=== PATIENT | female | born 1965 | race Caucasian/White ===

== ENCOUNTER → 2018-10-10 08:05 | Outpatient (CLI) | payer OTHER, SELFPAY ==
--- NOTE | 2018-10-10 08:07 | DI.MG.S_ITS ---
BILATERAL DIGITAL SCREENING MAMMOGRAM 3D/2D WITH CAD: 10/10/2018 CLINICAL: Routine screening. Family history of breast cancer. Comparison is made to exam dated: 10/18/2012 [facility]. The tissue of both breasts is heterogeneously dense. This may lower the sensitivity of mammography. Current study was also evaluated with a Computer Aided Detection (CAD) system. There are benign calcifications in both breasts. No significant masses, calcifications, or other findings are seen in either breast. There has been no significant interval change. IMPRESSION: There is no mammographic evidence of malignancy. A 1 year screening mammogram is recommended. This exam was interpreted at Station ID: [id number]. NOTE: For mammograms, a report in lay terms will be sent to the patient. Approximately 15% of breast malignancies will not be visualized mammographically. In the management of a palpable breast mass, a negative mammogram must not discourage biopsy of a clinically suspicious lesion. Electronically Signed By: Amor park/curtis:10/10/2018 11:03:32 letter sent: Normal Exam ACR BI-RADS Category 2: Benign Finding(s) 3342F
== END ==
PROVIDERS: PCP Family Medicine
DX: Z12.31 Encounter for screening mammogram for malignant neoplasm of breast (principal); Z80.3 Family history of malignant neoplasm of breast
CPT/HCPCS: 77063; 77067

== ENCOUNTER → 2020-08-26 13:27 | Outpatient (CLI) | payer OTHER, SELFPAY ==
--- NOTE | 2020-08-26 | DI.RAD.S_ITS ---
PROCEDURE: XR FOOT RT MIN 3V INDICATIONS: RIGHT FOOT PAIN TECHNIQUE: 3 views of the foot were acquired. COMPARISON: None. FINDINGS: Bones: No fractures or dislocations. No suspicious bony lesions. Soft tissues: No tibiotalar joint effusion. Achilles tendon appears normal. IMPRESSION: Source of pain at the base of the 2nd digit is not identified. Dictated by: Bhavesh Bustamante M.D. on 08/26/2020 at 15:39 Approved by: Bhavesh Bustamante M.D. on 08/26/2020 at 15:40
== END ==
PROVIDERS: PCP Family Medicine; Referring Provider Family Medicine; Visit Provider Family Medicine
DX: M79.671 Pain in right foot (principal)
CPT/HCPCS: 73630

== ENCOUNTER → 2021-03-17 14:26 | Outpatient (CLI) | payer OTHER, SELFPAY ==
--- NOTE | 2021-03-17 | DI.RAD.S_ITS ---
PROCEDURE: XR FINGER RT MIN 2V INDICATIONS: RIGHT MIDDLE FINGER PAIN, SWELLING, S/P INJURY TECHNIQUE: AP hand, 2 views of the 3rd finger(s) acquired. COMPARISON: CR, HAND 3V RIGHT, 08/15/2009, 17:38. FINDINGS: Bones: No fractures or dislocations. No suspicious bony lesions. Soft tissues: No suspicious soft tissue calcifications. IMPRESSION: No definite radiographic abnormality. If pain persists with conservative management, consider cross sectional imaging such as CT or MRI for further assessment. Dictated by: Al Sparrow [facility] Interpreted: Ishmael Bianchi MD on 03/17/2021 at 15:21 Transcribed by: HALLEY on 03/17/2021 at 15:22 Approved by: Ishmael Bianchi M.D. on 03/17/2021 at 17:28
[2021-03-17 15:10] LABS: Add Manual Diff / Slide Review NO; Basophils Absolute Auto 0 /uL (0-100); Basophils Percent Auto 0.6 % (0-2); Eosinophils Absolute Auto 100 /uL (0-450); Eosinophils Percent Auto 1.9 % (2-4); Hematocrit 42.7 % (36-46); Hemoglobin 14.5 g/dL (12.0-16.0); Lymphocytes Absolute Auto 1300 /uL (1100-4500); Lymphocytes Percent Auto 23.5 % (25-40); Mean Corpuscular HGB Conc 33.9 % (30-36); Mean Corpuscular Hemoglobin 30.1 PG (26-34); Mean Corpuscular Volume 88.8 fL (80-100); Monocytes Absolute Auto 400 /uL (0-900); Monocytes Percent Auto 7.2 % (3-14); Neutrophils Absolute Auto 3700 /uL (1500-7000); Neutrophils Percent Auto 66.8 % (50-75); Platelet Count 291 X10^3/uL (150-400); Red Blood Cell Count 4.81 X10^6/uL (4.0-5.2); White Blood Cell Count 5.5 X10^3/uL (4.5-11.0)
[2021-03-17 16:21] LABS: Vitamin D 25 Hydroxy (D3) 28.5 ng/mL (30.0-100.0)
[2021-03-18 11:16] LABS: HCV AB <0.1 s/co ratio (0.0-0.9)
== END ==
PROVIDERS: PCP Family Medicine; Referring Provider Family Medicine; Visit Provider Family Medicine
DX: E55.9 Vitamin D deficiency, unspecified (principal); M79.644 Pain in right finger(s); D70.9 Neutropenia, unspecified
CPT/HCPCS: 36415; 73140; 82306; 85025; 86803

== ENCOUNTER 2021-07-13 02:19 | Emergency (ER) | payer OTHER, SELFPAY ==
[2021-07-13 02:26] VITALS: BMI 24.7
--- NOTE | 2021-07-13 02:38 | DI.CT.S_ITS ---
PROCEDURE: CT KIDNEY URETER BLADDER (KUB) INDICATIONS: left flank pain, history of stones TECHNIQUE: Axial sections were acquired from the lung bases to the pubic symphysis. Coronal and sagittal reformats were performed. For radiation dose reduction, the following was used: automated exposure control, adjustment of mA and/or kV according to patient size. COMPARISON: None. FINDINGS: Image quality: Excellent. Lung bases: Unremarkable. Heart: No significant findings. URINARY: Right Kidney: Nonobstructing right-sided nephrolith measuring approximately 3 mm in size. No hydronephrosis. No perinephric stranding. Right Ureter: No hydroureter. No ureteral stone. Left Kidney: Multiple renal stones are present measuring up to 5 mm in size. There is mild hydroureteronephrosis. Left Ureter: There is a 2 mm distal left ureteral stone with associated left hydroureter. Bladder: Normal wall thickness. No stones. ABDOMEN: Liver: Unremarkable. Gallbladder: Gallbladder is unremarkable Biliary ducts: Unremarkable. Pancreas: Unremarkable. Spleen: Unremarkable. Adrenal Glands: Unremarkable. Stomach and Bowel: Stomach, small bowel loops, and colon are unremarkable. Normal appendix Peritoneum: No abnormal intraperitoneal fluid. No free air. Ventral Wall: There is a fat-containing umbilical hernia without acute inflammation. Abdominal Nodes: No enlarged retroperitoneal or mesenteric lymph nodes. Vessels: Aorta and inferior vena cava are normal in size. PELVIS: Pelvic Organs: Unremarkable. Pelvic Nodes: Unremarkable. Miscellaneous: No inguinal hernias are seen. Bones: There are postsurgical changes of the left femoral neck. No acute compression fractures. IMPRESSION: There is a 2 mm obstructing distal left ureteral stone with associated mild left hydroureteronephrosis. Multiple dish dull bilateral renal stones are present measuring up to 3 mm on the right and 5 mm on the left. No significant discrepancy with the slot shift manager radiology preliminary report. Dictated by: Amor Jarquin M.D. on 07/13/2021 at 7:06 Approved by: Amor Jarquin M.D. on 07/13/2021 at 7:13
--- NOTE | 2021-07-13 02:40 | ED_ITS ---
HPI - Abdominal Pain General Chief Complaint: Abdominal Pain Stated Complaint: left side/kidney pain x2 hours Time Seen by Provider: 07/13/21 02:30 Source: patient Mode of arrival: Ambulatory History of Present Illness HPI narrative: Patient is a 56-year-old female history of kidney stones presenting today with sudden onset left flank pain. She is to was doing well earlier in the day pain started roughly around 8:00 p.m. progressively got worse. She says he has known stones in her kidney. She denies any fever or chills. She feels nauseous with the intense pain. Pain is wrapping around from her flank to her groin just like previous kidney stones. Has never required lithotripsy. It has been a number of years since her last 1. She denied any other medical problems. Related Data Previous Rx's Medication Instructions Recorded hydrocodone 5 mg-acetaminophen 325 1 tab PO Q6H PRN #10 tab 07/13/21 mg tablet ondansetron 4 mg disintegrating 4 mg PO Q8H PRN #10 tab 07/13/21 tablet Allergies Allergy/AdvReac Type Severity Reaction Status Date / Time No Known Drug Allergies Allergy Verified 09/26/18 11:10 Review of Systems Review of Systems Narrative: GENERAL: Denies chills, fatigue, malaise, fever, sweats, travel HEENT: Denies sinus pain, ear pain, sore throat, difficulty swallowing, neck pain RESPIRATORY: Denies dyspnea, cough, wheezing, hemoptysis, sputum. CARDIOVASCULAR: Denies chest pain, palpitations, orthopnea, edema GASTROINTESTINAL: See HPI : See HPI MUSCULOSKELETAL: Denies weakness, joint pain, or bony pain SKIN: No rash, no erythema, no pruritus NEUROLOGIC: Denies weakness, dizziness, headache, numbness, change in speech, confusion PSYCHIATRIC: No concerning psychosocial issues. 12 point review of systems is negative except for those stated above and HPI Patient History Medical History (Updated 07/13/21 @ 03:45 by Tyesha Mckeon DO) Kidney stones (~2015) Ulcerative colitis Vision disorder Surgical History (Updated 11/10/18 @ 18:58 by Maranda Jarrett) Anesthesia Leg fracture, left (~1999) Social History Smoking Status: Never smoker Smoking Status: Never smoker Substance Use Type: does not use Exam Initial Vital Signs Initial Vital Signs: Vital Signs Temperature 99.1 F 07/13/21 03:00 Pulse Rate 64 01/19/22 03:00 Respiratory Rate 20 07/13/21 03:00 Blood Pressure 128/78 07/13/21 03:00 Pulse Oximetry 96 07/13/21 03:00 GENERAL: The patient overall appears in quite a bit of pain and nauseous HEENT: Head atraumatic,EOMI, pupils reactive, face symmetric, moist mucous membranes CARDIOVASCULAR: Regular rate and rhythm without murmurs, rubs or gallops. RESPIRATORY: Breath sounds equal bilaterally, no wheezes rales or rhonchi. ABDOMEN: Soft, nontender. Normoactive bowel sounds all 4 quadrants. No guarding or rebound. : Left CVA tenderness EXTREMITIES: Normal range of motion, no clubbing or edema. Neurovascularly intact NEUROLOGICAL: Alert and oriented x4.Normal gait and speech. SKIN: Warm, dry, no laceration, no petechiae, no rashes or lesions. Course Orders Ordered: ED Orders 07/13/21 02:38 CT kidney ureter bladder (KUB) Stat 07/13/21 02:40 CBC Auto Diff [Complete Blood Count AUTO DIFF] Stat CMP [Comprehensive Metabolic Panel] Stat Lipase Stat 07/13/21 03:59 UA dip and micro [Urinalysis and Microscopic] Stat Discontinued Medications Hydrocodone Bitart/Acetaminophen (Hydrocodone/Acet 5/325 Prepack) 1 bottle MISC SEEINSTR ONE Stop: 07/13/21 03:58 Last Admin: 07/13/21 04:10 Dose: 1 bottle Documented by: JAS Ketorolac Tromethamine (Ketorolac 30 Mg/Ml Vial) 30 mg IV NOW ONE Stop: 07/13/21 02:37 Last Admin: 07/13/21 02:41 Dose: 30 mg Documented by: GRANT Morphine Sulfate (Morphine 2 Mg/Ml Inj) 2 mg IV NOW ONE Stop: 07/13/21 03:35 Last Admin: 07/13/21 03:39 Dose: 2 mg Documented by: JAS Ondansetron HCl (Ondansetron 4 Mg Odt Prepack) 1 [facility] Stop: 07/13/21 03:58 Last Admin: 07/13/21 04:10 Dose: 1 bottle Documented by: JAS Vital Signs Vital signs: Vital Signs - 8 hr 07/13/21 03:00 07/13/21 05:01 Temperature 99.1 F Pulse Rate 64 82 Respiratory Rate 20 16 Blood Pressure 128/78 128/78 Pulse Oximetry 96 98 MDM - Abdominal Pain Lab Data Result diagrams: 07/13/21 02:40 07/13/21 02:40 Labs: Lab Results 07/13/21 07/13/21 07/13/21 Range/Units 02:40 02:40 03:59 WBC 5.9 (4.5-11.0) X10^3/uL RBC 4.71 (4.0-5.2) X10^6/uL Hgb 14.2 (12.0-16.0) g/dL Hct 40.6 (36-46) % MCV 86.1 (80-100) fL MCH 30.2 (26-34) PG MCHC 35.1 (30-36) % RDW 13.1 (11.6-14.8) % Plt Count 296 (150-400) X10^3/uL Neut % (Auto) 45.4 L (50-75) % Lymph % (Auto) 40.5 H (25-40) % [place] % (Auto) 9.0 (3-14) % Eos % (Auto) 4.4 H (2-4) % Baso % (Auto) 0.7 (0-2) % Neut # (Auto) 2700 (2250-4918) /uL Lymph # (Auto) 2400 (3528-7069) /uL [place] # (Auto) 500 (0-900) /uL Eos # (Auto) 300 (0-450) /uL Baso # (Auto) 0 (0-100) /uL Sodium 139 (137-145) mmol/L Potassium 4.0 (3.4-5.1) mmol/L Chloride 105 (98-107) mmol/L Carbon Dioxide 25 (22-32) mmol/L BUN 14 (7-17) mg/dL Creatinine 0.80 (0.52-1.04) mg/dL Estimated GFR > 60.0 (>60) mL/min BUN/Creatinine Ratio 17.5 (6-22) Glucose 123 H (70-100) mg/dL Calcium 9.5 (8.4-10.2) mg/dL Total Bilirubin 0.4 (0.2-1.3) mg/dL AST 33 (14-36) IU/L ALT 19 (<35) IU/L Alkaline Phosphatase 83 (38-126) U/L Total Protein 7.3 (6.3-8.2) g/dL Albumin 4.4 (3.5-5.0) g/dL Globulin 2.9 (1.7-4.1) g/dL Albumin/Globulin Ratio 1.5 (1.0-2.8) Lipase 108 (23-300) U/L Urine Color Yellow Urine Appearance Clear Urine pH 6.5 (4.5-8.0) Ur Specific [place] 1.020 (1.000-1.035) Urine Protein 1+ H (Negative) Urine Glucose (UA) Trace H (Negative) g/dL Urine Ketones Trace H (NEGATIVE) Urine Occult Blood 3+ H (Negative) Urine Nitrate Negative (Negative) Urine Bilirubin Negative (NEGATIVE) Urine Urobilinogen 1.0 (0.2) E.U./dL Ur Leukocyte Esterase Negative (NEGATIVE) Urine RBC 10-30/hpf H (0-5/HPF) Urine WBC None seen (0-5/HPF) Ur Squamous Epith Cells 0-1 /hpf (0-5/HPF) Urine Bacteria Occasional (0-1) (None) Urine Mucus 1+ H (Negative) Ur Culture Indicated? Cult not indicated Point of care testing: Urine Dip Bedside Urine Glucose Negative Bedside Urine Bilirubin - Negative Bedside Urine Ketone - Negative Urine Specific [place] 1.025 Bedside Urine Occult Blood +++ Bedside Urine pH 6 Bedside Urine Protein + 30 Bedside Urine Urobilinogen - Negative Bedside Urine Nitrite - Negative Bedside Urine Leukocytes - Negative Esterase Imaging Data CT scan - abdomen/pelvis: Radiologist's Impression: Preliminary report: Mild left-sided hydro ureteral nephrosis with 2 mm distal left ureteral calculus. Additional nonobstructing left and right renal calculi are present MDM Narrative Medical decision making narrative: Patient initially feeling some relief after Toradol. CT does confirm 2 mm stone at the he denied with intrarenal stones bilaterally. No sign of infection no failure at this time. She is requiring a dose of morphine to help get her pain more under control. She is given pain medications for pain control home drug shins and when to return to ED. She will likely need Urology consult seeing as though she has more stones. Discharge Plan Departure Patient Disposition: Home Clinical Impression: Kidney stone on left side Instructions: DI for Kidney Stones Activity Restrictions/Additional Instructions: * You've been diagnosed with kidney stone * What to do: Increase fluid intake, Strain urine, try to catch stone * Please follow-up with your primary care provider in the next 2-3 days, you may require urology consultation please discuss this with -If you should have fever, or pain is uncontrolled with medication at home or any other concerning symptoms return to ER for further evaluation MEDICATIONS-->[facility] to [facility] [place] Take Motrin 800 mg every 8 hours as needed for pain Take [place] every 6 hours if needed for severe pain Take Zofran every 4-6 hours if needed for nausea CONTROLLED SUBSTANCE DISCHARGE (Narcotoic/benzodiazepine) 1. You have been prescribed narcotic medications, it does have acetaminophen/Tylenol/paracetamol in it so do not take extra Tylenol or Tylenol containing products 2. Please understand that we cannot provide further refills of narcotics, benzodiazepines or controlled substances through the ED and her pain management will need to be through your provider. 3. While on these medications you cannot drive or operate heavy machinery. 4. You cannot sign legal documents or perform any duties such as this. 5. As long as you're taking opiate pain medications he should also be taking a stool softener such as Colace, Dulcolax, MiraLAX or prune juice, to help avoid constipation. Prescriptions: New hydrocodone-acetaminophen 5-325 mg tablet 1 tab PO Q6H PRN (Reason: pain) Qty: 10 0RF ondansetron 4 mg tablet,disintegrating 4 mg PO Q8H PRN (Reason: nausea and vomiting) Qty: 10 0RF Referrals: Halle Morillo MD [Primary Care Provider] -
[2021-07-13] MEDS: KETOROLAC 30 MG/ML VIAL IV (02:41)
[2021-07-13] MEDS: ONDANSETRON 4 MG/2 ML INJ (02:41)
[2021-07-13 02:53] LABS: Add Manual Diff / Slide Review NO; Basophils Absolute Auto 0 /uL (0-100); Basophils Percent Auto 0.7 % (0-2); Eosinophils Absolute Auto 300 /uL (0-450); Eosinophils Percent Auto 4.4 % (2-4); Hematocrit 40.6 % (36-46); Hemoglobin 14.2 g/dL (12.0-16.0); Lymphocytes Absolute Auto 2400 /uL (1100-4500); Lymphocytes Percent Auto 40.5 % (25-40); Mean Corpuscular HGB Conc 35.1 % (30-36); Mean Corpuscular Hemoglobin 30.2 PG (26-34); Mean Corpuscular Volume 86.1 fL (80-100); Monocytes Absolute Auto 500 /uL (0-900); Neutrophils Absolute Auto 2700 /uL (1500-7000); Neutrophils Percent Auto 45.4 % (50-75); Platelet Count 296 X10^3/uL (150-400); Red Blood Cell Count 4.71 X10^6/uL (4.0-5.2); Red Cell Distribution Width 13.1 % (11.6-14.8); White Blood Cell Count 5.9 X10^3/uL (4.5-11.0)
[2021-07-13 02:58] LABS: Alanine Aminotransferase 19 IU/L (<35); Albumin 4.4 g/dL (3.5-5.0); Albumin Globulin Ratio 1.5 (1.0-2.8); Alkaline Phosphatase 83 U/L (38-126); Aspartate Aminotransferase 33 IU/L (14-36); BUN Creatinine Ratio 17.5 (6-22); Bilirubin Total 0.4 mg/dL (0.2-1.3); Blood Urea Nitrogen 14 mg/dL (7-17); Calcium 9.5 mg/dL (8.4-10.2); Carbon Dioxide 25 mmol/L (22-32); Chloride 105 mmol/L (98-107); Estimated Glomerular Filt Rate > 60.0 mL/min (>60); Globulin 2.9 g/dL (1.7-4.1); Glucose 123 mg/dL (70-100); HEMOLYSIS 19 (0-50); Lipase 108 U/L (23-300); Sodium 139 mmol/L (137-145); Total Protein 7.3 g/dL (6.3-8.2)
[2021-07-13 03:00] VITALS: BP 128/78; PULSE 64; RESP 20; TEMP 37.3; O2SAT 96
[2021-07-13] MEDS: MORPHINE 2 MG/ML INJ IV (03:39)
[2021-07-13 04:01] LABS: Appearance Urine UA CLEAR; Bilirubin Urine UA NEGATIVE (NEGATIVE); Color Urine UA YELLOW; Glucose Urine UA TRACE g/dL (Negative); Ketones Urine UA TRACE (NEGATIVE); Leukocyte Esterase Urine UA NEGATIVE (NEGATIVE); Nitrite Urine UA NEGATIVE (Negative); Occult Blood Urine UA 3+ (Negative); Protein Urine UA 1+ (Negative)
[2021-07-13 04:02] LABS: pH Urine UA 6.5 (4.5-8.0)
[2021-07-13] MEDS: HYDROCODONE/ACET 5/325 PREPACK 1 BOTTLE MISC (04:10)
[2021-07-13] MEDS: ONDANSETRON 4 MG ODT PREPACK 1 BOTTLE MISC (04:10)
[2021-07-13 04:13] LABS: Bacteria Urine Occasional (0-1); Culture Indicated Urine Cult Not Indicated; Mucus Urine 1+ (Negative); RBC Urine 10-30/HPF (0-5/HPF); Squamous Epithelial Cell Urine 0-1 /HPF (0-5/HPF); WBC Urine None Seen (0-5/HPF)
[2021-07-13 05:01] VITALS: BP 128/78; PULSE 82; RESP 16; O2SAT 98
== END 2021-07-13 05:02 | disposition home or self-care (01) ==
PROVIDERS: Emergency Provider Emergency Medicine; PCP Family Medicine
DX: N20.0 Calculus of kidney (principal); Z87.442 Personal history of urinary calculi
CPT/HCPCS: 36415; 74176; 80053; 81001; 81003; 83690; 85025; 96374; 96375; 99284; J1885; J2270; J2405

== ENCOUNTER 2024-06-01 03:40 | Emergency (ER) | payer OTHER, SELFPAY ==
--- NOTE | 2024-06-01 03:42 | ED.ABDPAIN ---
HPI - Abdominal Pain General Chief Complaint: Urogenital-Female Stated Complaint: KIDNEY STONE T-3 Time Seen by Provider: 06/01/24 03:41 History of Present Illness HPI narrative: 59-year-old female history of kidney stones presents to the emergency department from home for evaluation of sudden onset left-sided flank pain states that it started a proximally 3 days ago, states that she did have some hematuria, states that it felt exactly similar to her history of kidney stones in the past, she states that it did take a proximally 5 days for the past previously, states that she did follow up with urologist after, has not followed up with them since. She does endorse nausea but no vomiting. Nothing making it better or worse. States that the pain has not gotten any better therefore decided come to ED for further evaluation treatment. Not on any blood thinners no trauma no falls patient states that she did take 600 mg of Motrin 3 hours prior to arrival without any relief. Related Data Previous Rx's Medication Instructions Recorded hydrocodone 5 mg-acetaminophen 325 1 tab PO Q6H PRN pain #10 tabs 07/13/21 mg tablet ondansetron 4 mg disintegrating 4 mg PO Q8H PRN nausea and 07/13/21 tablet vomiting #10 tabs cephalexin 500 mg capsule 500 mg PO TID 7 days #21 caps 06/01/24 ondansetron 4 mg disintegrating 4 mg PO TID PRN nausea and 06/01/24 tablet vomiting 1 week #21 tabs oxycodone-acetaminophen 5 mg-325 1 tab PO Q8H PRN pain 5 days #15 06/01/24 mg tablet (Percocet) tabs tamsulosin 0.4 mg capsule (Flomax) 0.4 mg PO DAILY 1 week #7 caps 06/01/24 Allergies Allergy/AdvReac Type Severity Reaction Status Date / Time No Known Drug Allergies Allergy Verified 09/26/18 11:10 Review of Systems Review of Systems Narrative: General: Denies fever, chills, weight loss HEENT: Denies headache, eye drainage, eye irritation, head trauma, sore throat, voice change Cardiovascular: Denies any chest pain, palpitations, shortness of breath, tachycardia Respiratory: Denies any shortness of breath, cough, wheeze, stridor GI/: Positive left flank pain, nausea, denies vomiting, diarrhea, bright red blood per rectum, melanotic stools, urinary frequency, urinary retention, dysuria, hematuria MSK: Denies any joint pain, muscle pains, swelling Skin: Denies any rashes, lesions, discoloration Neuro: Denies any headache, lightheadedness, dizziness, fainting, weakness Psych: Denies SI/HI Patient History Medical History (Updated 06/01/24 @ 04:43 by Eduardo Smith DO) Vision disorder Kidney stones (~2015) Ulcerative colitis Surgical History (Updated 11/10/18 @ 18:58 by Maranda Jarrett) Anesthesia Leg fracture, left (~1999) Social History Smoking Status: Never smoker Smoking Status: Never smoker Exam Narrative Exam Narrative: General: Cooperative, comfortable, well-developed, not in acute distress HEENT: Normocephalic, atraumatic, PERRLA, normal sclera, eyelids normal, Neck: Active full range of motion, atraumatic Chest: Normal to inspection, negative crepitus, no overlying erythema ecchymosis Respiratory: Normal respiratory effort, not in acute respiratory distress, clear to auscultation bilaterally negative cough, wheeze, tachypnea, rhonchi, rales Cardiology: Regular rate rhythm negative gallop, murmur, rubs GI/: Normal to inspection, soft, nonrigid, no tenderness to palpation, exam deferred MSK: Full range of active range of motion of all 4 extremities, atraumatic Skin: No rashes lesions noted Neuro: Alert awake oriented x3, moves all 4 extremities spontaneously, cranial nerves intact, able to answer all questions appropriately follows commands appropriately Psych: Cooperative, negative suicidal or homicidal ideations Initial Vital Signs Initial Vital Signs: Vital Signs Temperature 99.9 F H 06/01/24 03:48 Pulse Rate 85 06/01/24 03:48 Respiratory Rate 18 06/01/24 03:48 Blood Pressure 158/77 H 06/01/24 03:48 Pulse Oximetry 99 06/01/24 03:48 Oxygen Delivery Method Room Air 06/01/24 03:48 Course Orders Ordered: ED Orders 06/01/24 03:43 CT abdomen pelvis wo con Stat Complete Blood Count AUTO DIFF Stat Comprehensive Metabolic Panel Stat 06/01/24 03:52 Urine Microscopic Stat Discontinued Medications Ketorolac Tromethamine (Ketorolac 30 Mg/Ml Vial) 15 mg IV NOW ONE Stop: 06/01/24 03:44 Last Admin: 06/01/24 03:57 Dose: Not Given Morphine Sulfate (Morphine 4 Mg/Ml Inj) 4 mg IV NOW ONE Stop: 06/01/24 03:52 Last Admin: 06/01/24 03:54 Dose: 4 mg Ondansetron HCl (Ondansetron 4 Mg/2 Ml Inj) 4 mg IV NOW ONE Stop: 06/01/24 03:44 Last Admin: 06/01/24 03:53 Dose: 4 mg Tamsulosin HCl (Tamsulosin 0.4 Mg Capsule) 0.4 mg PO NOW ONE Stop: 06/01/24 04:25 Last Admin: 06/01/24 04:30 Dose: 0.4 mg Vital Signs Vital signs: Vital Signs - 8 hr 06/01/24 03:48 Temperature 99.9 F H Pulse Rate 85 Respiratory Rate 18 Blood Pressure 158/77 H Pulse Oximetry 99 Oxygen Delivery Method Room Air MDM - Abdominal Pain Differential Diagnosis Differential diagnosis: Likely calculus of kidney and other (Pyelonephritis, urinary tract infection) Lab Data 06/01/24 03:52 06/01/24 03:52 Labs: Lab Results 06/01/24 Range/Units 03:52 WBC 10.8 (4.5-11.0) X10^3/uL RBC 4.82 (4.0-5.2) X10^6/uL Hgb 14.5 (12.0-16.0) g/dL Hct 42.5 (36-46) % MCV 88.0 (80-100) fL MCH 30.1 (26-34) PG MCHC 34.2 (30-36) % RDW 13.5 (11.6-14.8) % Plt Count 270 (150-400) X10^3/uL Neut % (Auto) 81.4 H (50-75) % Lymph % (Auto) 8.7 L (25-40) % [place] % (Auto) 9.0 (3-14) % Eos % (Auto) 0.4 L (2-4) % Baso % (Auto) 0.5 (0-2) % Neut # (Auto) 8800 H (0618-8064) /uL Lymph # (Auto) 900 L (9640-5408) /uL [place] # (Auto) 1000 H (0-900) /uL Eos # (Auto) 0 (0-450) /uL Baso # (Auto) 100 (0-100) /uL Sodium 134 L (137-145) mmol/L Potassium 3.6 (3.4-5.1) mmol/L Chloride 103 (98-107) mmol/L Carbon Dioxide 19 L (22-32) mmol/L BUN 23 H (7-17) mg/dL Creatinine 1.07 H (0.52-1.04) mg/dL Estimated GFR 59 L (>60) mL/min BUN/Creatinine Ratio 21.5 (6-22) Glucose 97 (80-110) mg/dL Calcium 9.2 (8.4-10.2) mg/dL Total Bilirubin 0.8 (0.2-1.3) mg/dL AST 38 H (14-36) IU/L ALT 22 (<35) IU/L Alkaline Phosphatase 71 (38-126) U/L Total Protein 7.2 (6.3-8.2) g/dL Albumin 4.4 (3.5-5.0) g/dL Globulin 2.8 (1.7-4.1) g/dL Albumin/Globulin Ratio 1.6 (1.0-2.8) Urine RBC 1-5/hpf D (0-5/HPF) Urine WBC None seen (0-5/HPF) Ur Squamous Epith Cells 1-5 /hpf (0-5/HPF) Urine Bacteria None seen (None) Ur Culture Indicated? Cult not indicated Vol Urine Centrifuged 10ml (spun) Point of care testing: Urine Dip Bedside Urine Glucose Negative Bedside Urine Bilirubin - Negative Bedside Urine Ketone +++ 80 Urine Specific [place] 1.025 Bedside Urine Occult Blood + Bedside Urine pH 5.5 Bedside Urine Protein - Negative Bedside Urine Urobilinogen - Negative Bedside Urine Nitrite - Negative Bedside Urine Leukocytes - Negative Esterase Imaging Data CT scan - abdomen/pelvis: Radiologist's Impression: Preliminary read showing left obstructive uropathy secondary to 4 mm proximal calculus, with mild left hydro. MDM Narrative Medical decision making narrative: 59-year-old female with a history of nephrolithiasis presents to the emergency department from home for evaluation of left-sided flank pain, states it started suddenly a proximally 3 days ago, states that she is also having some nausea no vomiting hematuria, states that it feels exactly the same has been she had kidney stones in the past. States that she thought that she would passive herself therefore this is the reason she did not come in initially. Patient had lab work urinalysis and CT scan here in the emergency department. Urinalysis without any signs of infection, no leukocytosis, 4 mm proximal ureteral calculus on CT scan. Patient was able to tolerate p.o. liquids, patient states that she would prefer to try to pass this at home with the medications, informed to follow up with Urology in outpatient setting, she verbalized understanding of this and agrees with being discharged home with outpatient follow up. Patient will be sent home with prophylactic antibiotics, tamsulosin as well as antiemetics and pain management. Discharge Plan Departure Patient Disposition: Home Clinical Impression: Urolithiasis Activity Restrictions/Additional Instructions: Please follow up with Urology in outpatient setting Please read the discharge instructions sheet carefully and bring all papers to all doctor follow-up visits, as it may contain information that your doctor may want to see. Disease processes change and evolve, if your symptoms worsen or if you develop any new symptoms that are concerning to you please return for evaluation. Your evaluation today does not show any evidence of any life-threatening/serious illnesses requiring admission to the hospital or surgery. Please follow-up with your doctor for re-evaluation in approximately 1 day. Seek immediate medical attention for any worrisome symptoms. *If you do not have a primary care provider please contact the [facility] Resource line at [phone]. They will ask some questions about your medical history and help get you set up with a doctor in the community. Prescriptions: New ondansetron 4 mg tablet,disintegrating 4 mg PO TID PRN (Reason: nausea and vomiting) 7 Days Qty: 21 0RF oxycodone-acetaminophen [Percocet] 5-325 mg tablet 1 tab PO Q8H PRN (Reason: pain) 5 Days Qty: 15 0RF tamsulosin [Flomax] 0.4 mg capsule 0.4 mg PO DAILY 7 Days Qty: 7 0RF cephalexin 500 mg capsule 500 mg PO TID 7 Days Qty: 21 0RF No Action hydrocodone-acetaminophen 5-325 mg tablet 1 tab PO Q6H PRN (Reason: pain) Qty: 10 0RF ondansetron 4 mg tablet,disintegrating 4 mg PO Q8H PRN (Reason: nausea and vomiting) Qty: 10 0RF Referrals: Luis M Roca DO [Physician] - (Urolithiasis) Halle Morillo MD [Primary Care Provider] - Stand Alone Forms: Patient Portal/API/Survey
--- NOTE | 2024-06-01 03:43 | DI.CT.S_ITS ---
PROCEDURE: CT ABDOMEN PELVIS WO CON INDICATIONS: left flank pain, hx kidney stones TECHNIQUE: Axial sections were acquired from the lung bases to the pubic symphysis. Coronal and sagittal reformats were performed. For radiation dose reduction, the following was used: automated exposure control, adjustment of mA and/or kV according to patient size. COMPARISON: None. FINDINGS: Image quality: Diagnostic. Lower Chest: No significant findings. URINARY: Right Kidney: No obstructing stones or hydronephrosis. Punctate nonobstructing stones are noted in right kidney measures 2-3 mm in size. Right Ureter: No hydroureter. Left Kidney: Punctate 2-3 mm nonobstructing stones are seen left kidney. Moderate left-sided hydronephrosis and left perinephric fat stranding is seen. Left Ureter: There is moderate left proximal hydroureter with 4 mm stone seen in proximal left ureter approximately 3 cm distal to the UPJ. More distal left ureter is normal in size. Bladder: Normal wall thickness. No stones. ABDOMEN: Liver: No contour-deforming solid mass. Gallbladder: No radiopaque gallstones or wall thickening. Biliary ducts: No biliary dilation. Pancreas: No ductal dilation. Spleen: Size is within normal limits. Adrenal Glands: No adrenal nodules. Stomach and Bowel: Normal colonic caliber, without significant wall thickening. Fecal stasis in the colon is seen. Peritoneum: No abnormal intraperitoneal fluid. No free air. Ventral Wall: No hernia. Abdominal Nodes: No enlarged retroperitoneal or mesenteric lymph nodes. Vessels: Aorta and inferior vena cava are normal in size. PELVIS: Pelvic Organs: Unremarkable. Pelvic Nodes: Unremarkable. Miscellaneous: No inguinal hernias are seen. Bones: Unremarkable. Post ORIF changes are seen in left femoral neck. No acute vertebral body compression fracture. IMPRESSION: 1. 4 mm left proximal ureteral stone causing moderate left-sided hydronephrosis and proximal hydroureter as described above. 2. Bilateral punctate nonobstructing renal calculi. No right-sided hydronephrosis or hydroureter. Normal appearing urinary bladder. 3. No bowel obstruction or abnormal bowel wall thickening. No free fluid or free air. No discrepancies. Dictated by: Cristian Tavera M.D. on 06/01/2024 at 8:00 Approved by: Cristian Tavera M.D. on 06/01/2024 at 8:07
[2024-06-01 03:48] VITALS: BP 158/77; PULSE 85; RESP 18; TEMP 37.7; O2SAT 99; BMI 20.5
[2024-06-01] MEDS: ONDANSETRON 4 MG/2 ML INJ IV (03:53)
[2024-06-01] MEDS: MORPHINE 4 MG/ML INJ IV (03:54)
[2024-06-01 04:03] LABS: Add Manual Diff / Slide Review NO; Basophils Absolute Auto 100 /uL (0-100); Basophils Percent Auto 0.5 % (0-2); Eosinophils Absolute Auto 0 /uL (0-450); Eosinophils Percent Auto 0.4 % (2-4); Hematocrit 42.5 % (36-46); Hemoglobin 14.5 g/dL (12.0-16.0); Lymphocytes Absolute Auto 900 /uL (1100-4500); Lymphocytes Percent Auto 8.7 % (25-40); Mean Corpuscular HGB Conc 34.2 % (30-36); Mean Corpuscular Hemoglobin 30.1 PG (26-34); Monocytes Absolute Auto 1000 /uL (0-900); Neutrophils Absolute Auto 8800 /uL (1500-7000); Neutrophils Percent Auto 81.4 % (50-75); Platelet Count 270 X10^3/uL (150-400); Red Blood Cell Count 4.82 X10^6/uL (4.0-5.2); Red Cell Distribution Width 13.5 % (11.6-14.8); White Blood Cell Count 10.8 X10^3/uL (4.5-11.0)
[2024-06-01 04:05] VITALS: BP 126/73; RESP 16; O2SAT 99
[2024-06-01 04:05] LABS: Urine Volume 10mL (spun)
[2024-06-01 04:06] LABS: Bacteria Urine None Seen; Culture Indicated Urine Cult Not Indicated; RBC Urine 1-5/HPF (0-5/HPF); Squamous Epithelial Cell Urine 1-5 /HPF (0-5/HPF); WBC Urine None Seen (0-5/HPF)
[2024-06-01 04:11] LABS: Alanine Aminotransferase 22 IU/L (<35); Albumin 4.4 g/dL (3.5-5.0); Albumin Globulin Ratio 1.6 (1.0-2.8); Alkaline Phosphatase 71 U/L (38-126); Aspartate Aminotransferase 38 IU/L (14-36); BUN Creatinine Ratio 21.5 (6-22); Bilirubin Total 0.8 mg/dL (0.2-1.3); Blood Urea Nitrogen 23 mg/dL (7-17); Calcium 9.2 mg/dL (8.4-10.2); Carbon Dioxide 19 mmol/L (22-32); Chloride 103 mmol/L (98-107); Estimated Glomerular Filt Rate 59 mL/min (>60); Globulin 2.8 g/dL (1.7-4.1); Glucose 97 mg/dL (80-110); HEMOLYSIS < 15 (0-50); Potassium 3.6 mmol/L (3.4-5.1); Sodium 134 mmol/L (137-145); Total Protein 7.2 g/dL (6.3-8.2)
[2024-06-01 04:30] VITALS: BP 127/74; PULSE 80; RESP 15; O2SAT 97
[2024-06-01] MEDS: TAMSULOSIN 0.4 MG CAPSULE PO (04:30)
[2024-06-01] MEDS: cephALEXin 250 MG CAPSULE 500 MG PO (04:44)
[2024-06-01] MEDS: OXYCODONE/ACETAMINOPHEN 5/325 TABLET 1 TAB PO (04:44)
== END 2024-06-01 05:26 | disposition home or self-care (01) ==
PROVIDERS: Emergency Provider Student in an Organized Health Care Education/Training Program; PCP Family Medicine
DX: N20.2 Calculus of kidney with calculus of ureter (principal); R31.9 Hematuria, unspecified; Z87.442 Personal history of urinary calculi
CPT/HCPCS: 36415; 74176; 80053; 81003; 81015; 85025; 96374; 96375; 99284; J2270; J2405

== ENCOUNTER → 2024-06-23 16:10 | Outpatient (CLI) | payer OTHER, SELFPAY | PROVIDERS: PCP Family Medicine; Visit Provider Physician Assistant | DX: R30.0 Dysuria (principal) | CPT/HCPCS: 87086 ==